=== PATIENT | female | born 1990 | race Caucasian/White ===

== ENCOUNTER 2018-03-31 11:23 | Outpatient (CLI) | payer MEDICAID | END 2018-03-31 14:23 | disposition home or self-care (01) | LOC: OBT 11:23 → L-D 11:23 → OBT 14:23 | DX: O24.410 Gestational diabetes mellitus in pregnancy, diet controlled (principal); Z3A.38 38 weeks gestation of pregnancy | CPT/HCPCS: 76815; 76818 ==